=== PATIENT | male | born 1965 | race Caucasian/White ===

== ENCOUNTER 2021-03-23 09:39 | Emergency (ER) | payer BC ==
[~2021-03-23 09:39] MED LIST: EXPECTORANT200 MG PO; PREDNISONE 50 M50 MG PO; TESSALON PERLE100 MG PO; ZITHROMAX250 MG PO
[2021-03-23] MEDS ORDERED: DOXYCYCLINE HY100 MG PO (12:18)
[2021-03-23] MEDS ORDERED: PROVENTIL HFA6.7 GM INH (12:18)
[2021-03-23] MEDS ORDERED: MEDROL DOSEPAK 24 MG PO (12:18)
== END 2021-03-23 12:40 | disposition home or self-care (01) ==
LOC: ER1 09:39
DX: J40 Bronchitis, not specified as acute or chronic (principal); F17.210 Nicotine dependence, cigarettes, uncomplicated
CPT/HCPCS: 71045; 99284